=== PATIENT | male | born 1990 | race Caucasian/White ===

== ENCOUNTER 2021-06-07 18:34 | Emergency (ER) | payer BC, SELFPAY ==
[2021-06-07 18:50] VITALS: BP 151/85; PULSE 81; RESP 18; TEMP 36.9; O2SAT 99
[2021-06-07 19:14] LABS: Alanine Aminotransferase 21 U/L (4-50); Albumin Level 4.7 g/dL (3.5-5.1); Alkaline Phosphatase 68 U/L (38-126); Anion Gap 10 mmol/L (8-16); Aspartate Amino Transferase 34 U/L (17-59); Bilirubin,Total 0.5 mg/dL (0.2-1.3); Blood Urea Nitrogen 20 mg/dL (9-20); Calcium 9.5 mg/dL (8.4-10.2); Carbon Dioxide 25 mmol/L (22-30); Chloride 103 mmol/L (98-107); Estimated CRCL calculation 78 ml/min; Estimated Glomerular Filt Rate > 60; Glucose 118 mg/dL (65-110); Potassium 3.6 mmol/L (3.4-5.0); Sodium 138 mmol/L (137-145)
[2021-06-07 19:22] LABS: Basophils Percent Auto 0.3 % (0.2-1.2); Eosinophils Absolute Auto 0.1 K/mm3 (0-0.3); Eosinophils Percent Auto 0.4 % (0-4.4); Hematocrit 38.7 % (42.0-52.0); Hemoglobin 13.8 g/dL (14.0-18.0); Immature Granulocyte Absolute 0.03 K/mm3 (0.00-0.031); Immature Granulocyte Percent A 0.3 % (0-0.5); Lymphocytes Absolute Auto 3.74 K/mm3 (0.9-3.2); Mean Corpuscular HGB Conc 35.7 g/dl (32-36); Mean Corpuscular Hemoglobin 29.1 pg (26-34); Mean Corpuscular Volume 81.5 fl (80-100); Mean Platelet Volume 9.6 fl (7.4-10.4); Monocytes Absolute Auto 0.8 K/mm3 (0.1-0.6); Monocytes Percent Auto 6.6 % (2.6-8.5); Neutrophils Absolute Auto 7.1 K/mm3 (1.3-6.7); Neutrophils Percent Auto 60.4 % (45.5-73.1); Platelet Count Result 266 k/mm3 (150-375); Red Blood Count 4.75 M/mm3 (4.6-6.20); White Blood Count 11.7 K/mm3 (4.5-10.0)
[2021-06-07 19:25] LABS: Prothrombin Time 12.5 Seconds (11.1-14.7)
--- NOTE | 2021-06-07 20:32 | ED.GENADULT ---
HPI - General Adult General Chief complaint: Unspecified Stated complaint: Bloody Stool Time Seen by Provider: 06/07/21 20:15 History of Present Illness HPI narrative: 31-year-old male presents to the emergency room with 2 episodes of bloody stool. Patient states that the blood is bright red, is on the toilet paper, formed stool, and drops letter in the toilet. Patient states that this is happened multiple times in the past and he thought nothing of it. Patient denies abdominal pain, constipation, or diarrhea. Related Data Allergies Allergy/AdvReac Type Severity Reaction Status Date / Time No Known Allergies Allergy Verified 07/31/13 16:24 Review of Systems Review of Systems: CONSTITUTIONAL: Denies fever, chills, or sweats. EYES: Denies visual changes, redness, or discharge. ENT: Denies rhinorrhea, congestion, sore throat, or otalgia. CARDIOVASCULAR: Denies chest pain, palpitations, or edema. RESPIRATORY: Denies cough or dyspnea. GASTROINTESTINAL: Reports blood in stool GENITOURINARY: Denies dysuria or hematuria. SKIN: Denies rash or itching. MUSCULOSKELETAL: Denies back pain, joint pain, or myalgia. NEUROLOGIC: Denies headache, numbness, dizziness, or weakness. PSYCHIATRIC: Denies anxiety or depression. Exam Narrative: GENERAL: Well-appearing, well-nourished, and in no acute distress. HEAD: Normocephalic, atraumatic. EYES: PERRLA and EOMI. CHEST: Clear to auscultation. No respiratory distress. No wheezes rales or rhonchi HEART: Regular rate and rhythm. No murmur heard. Normal peripheral pulses. ABDOMEN: Soft, nontender, nondistended, normal active bowel sounds. X1 external hemorrhoid EXTREMITIES: Normal range of motion. No edema. SKIN: Warm, dry, no rash. NEURO: No focal deficits. Alert and oriented x3. PSYCH: Normal mood and affect. Course Vital Signs Vital signs: Vital Signs Temperature 36.9 C 06/07/21 18:50 Pulse Rate 81 06/07/21 18:50 Respiratory Rate 18 06/07/21 18:50 Blood Pressure 151/85 H 06/07/21 18:50 Pulse Oximetry 99 06/07/21 18:50 Temperature 36.9 C 06/07/21 18:50 Pulse Rate 81 06/07/21 18:50 Respiratory Rate 18 06/07/21 18:50 Blood Pressure 151/85 H 06/07/21 18:50 Pulse Oximetry 99 06/07/21 18:50 Medical Decision Making Vital Signs Vital Signs: Vital Signs Temperature 36.9 C 06/07/21 18:50 Pulse Rate 81 06/07/21 18:50 Respiratory Rate 18 06/07/21 18:50 Blood Pressure 151/85 H 06/07/21 18:50 Pulse Oximetry 99 06/07/21 18:50 Temperature 36.9 C 06/07/21 18:50 Pulse Rate 81 06/07/21 18:50 Respiratory Rate 18 06/07/21 18:50 Blood Pressure 151/85 H 06/07/21 18:50 Pulse Oximetry 99 06/07/21 18:50 Lab Data Result diagrams: 06/07/21 18:56 06/07/21 18:56 Labs: Lab Results 06/07/21 06/07/21 06/07/21 Range/Units 18:56 18:56 18:56 WBC 11.7 H (4.5-10.0) K/mm3 RBC 4.75 (4.6-6.20) M/mm3 Hgb 13.8 L (14.0-18.0) g/dL Hct 38.7 L (42.0-52.0) % MCV 81.5 (80-100) fl MCH 29.1 (26-34) pg MCHC 35.7 (32-36) g/dl RDW 12.0 (11.5-14.5) % Plt Count 266 (150-375) k/mm3 MPV 9.6 (7.4-10.4) fl Immature Gran % (Auto) 0.3 (0-0.5) % Neut % (Auto) 60.4 (45.5-73.1) % Lymph % (Auto) 32.0 (18.3-44.2) % Phelps % (Auto) 6.6 (2.6-8.5) % Eos % (Auto) 0.4 (0-4.4) % Baso % (Auto) 0.3 (0.2-1.2) % Lymph # (Auto) 3.74 H (0.9-3.2) K/mm3 Phelps # (Auto) 0.8 H (0.1-0.6) K/mm3 Eos # (Auto) 0.1 (0-0.3) K/mm3 Baso # (Auto) 0.0 (0.0-0.1) K/mm3 Abs Immat Gran (auto) 0.03 (0.00-0.031) K/mm3 Absolute Neuts (auto) 7.1 H (1.3-6.7) K/mm3 Absolute Nucleated RBC 0.0 (0.0-0.012) K/mm3 Nucleated RBC % 0.0 (0.0-0.2) % PT 12.5 (11.1-14.7) Seconds INR 1.0 APTT 29.0 (22.3-36.8) SECONDS Sodium 138 (137-145) mmol/L Potassium 3.6 (3.4-5.0) mmol/L Chloride 103 (98-107) mmol/L Carbon Dioxide 25 (22
[2021-06-07 21:27] VITALS: BP 131/87; PULSE 73; RESP 18; TEMP 36.8; O2SAT 96
--- NOTE | 2021-06-07 21:29 | PC.NURSE ---
Clarified with Uriel, [employer]. No need for type and screen, H&H stable
== END 2021-06-07 21:27 | disposition home or self-care (01) ==
LOC: ANHED 20:48
PROVIDERS: Emergency Medicine; Emergency Provider Nurse Practitioner Family
DX: K64.4 Residual hemorrhoidal skin tags (principal)
CPT/HCPCS: 36415; 80053; 85025; 85610; 85730; 99283